=== PATIENT | male | born 1965 | race Two or more races ===

== ENCOUNTER 2018-12-06 12:44 | Emergency (ER) | payer OTHER ==
[2018-12-06 12:56] VITALS: BMI 21.9
--- NOTE | 2018-12-06 13:07 | PDOC ---
History of Present Illness - General Chief Complaint: Chest Pain Stated Complaint: CHEST PAIN Time Seen by Provider: 12/06/18 13:06 History Source: Patient Exam Limitations: No Limitations - History of Present Illness Initial Comments: 53 yo M w a pmh of right sided nasal polyps presents to the ER with 1 hour of left sided sharp pleuritic chest pain. the patient reports that he was drinking water while working at his job when all of a sudden the patient felt a sharp pain in the left side of his chest. He describes the pain as sharp and needle like in character and rates it as 9/10. He denies any radiation of the pain and denies any associated nausea, vomiting, or diaphoresis. The patient states that his pain is worsened when he takes a deep breath but not reproducible on palpation or with arm motion. Physical exertion does not improve or worsen the patient's discomfort. The patient has not taken any medications for his discomfort. The patient also states that he has had a headache for the past 3 days which has not changed in character. He describes the headache as bilateral and pressure like. The headache is not what brought the patient into the ER, it is the chest pain which brought the patient into the ER. He denies recent fevers, chills, infections, long travel, history of blood clots , personal or family history of heart attacks, strokes or other blood vessel disease. PCP: Quincy Keith PSH: Sinus surgery Allergies: NKA, NKDA Social Hx: Denies smoking, drinking, or other substance usage including Cocaine. Past History - Past Medical History Allergies/Adverse Reactions: Allergies Allergy/AdvReac Type Severity Reaction Status Date / Time No Known Allergies Allergy Verified 12/06/18 12:57 Home Medications: Ambulatory Orders NK [No Known Home Medication] 12/06/18 COPD: No Other medical history: nasal polyps - Suicide/Smoking/Psychosocial Hx Smoking History: Never smoked Have you smoked in the past 12 months: No Information on smoking cessation initiated: No Hx Alcohol Use: No Drug/Substance Use Hx: No Review of Systems - Review of Systems Able to Perform ROS?: Yes Comments:: CONSTITUTIONAL: Absent: fever, no chills, no fatigue EYES: Absent: visual changes ENT: Absent: ear pain, no sore throat CARDIOVASCULAR: Present: Chest pain Absent: no palpitations RESPIRATORY: Present: SOB Absent: cough GI: Absent: abdominal pain, no nausea, no vomiting, no constipation, no diarrhea GENITOURINARY: Absent: dysuria, no frequency, no hematuria MUSKULOSKELETAL: Absent: back pain, no arthralgia, no myalgia SKIN: Absent: rash NEURO: Present: headache *Physical Exam - Vital Signs Last Vital Signs Temp Pulse Resp BP Pulse Ox 98.1 F 65 18 170/89 98 12/06/18 12:52 12/06/18 12:52 12/06/18 12:52 12/06/18 12:52 12/06/18 12:52 - Physical Exam Comments: GENERAL: Well-appearing, well-nourished. No apparent distress. HEENT: Normocephalic, atraumatic. PERRL, EOM intact. CARDIOVASCULAR: Normal S1, S2. Regular rate and rhythm. PULMONARY: Mild evidence of respiratory distress. Slightly decreased air entry in the left apex. No wheezing, rales or rhonchi. ABDOMEN: Soft, non-distended, non-tender. EXTREMITIES: Normal ROM in all four extremities. No gross deformities. SKIN: Warm, dry. No rash NEUROLOGICAL: No focal neurological deficits. Heart Score/ECG Review - History History: Slightly suspicious - Electrocardiogram EKG: Normal - Age Age: 45-65 - Risk Factors Based on the list above the patient has:: No risk factors known - Troponin Troponin: </= normal limit - Score Heart Score - Total: 1 ED Treatment Course - LABORATORY CBC & Chemistry Diagram: 12/06/18 13:30 12/06/18 13:30 Medical Decision Making - Medical Decision Making 53 yo M w a pmh of right sided nasal polyps presents to the ER with 1 hour of left sided sharp pleuritic chest pain. the patient reports that he was drinking water while working at his job when all of a sudden the patient felt a sharp pain in the left side of his chest. He describes the pain as sharp and needle like in character and rates it as 9/10. He denies any radiation of the pain and denies any associated nausea, vomiting, or diaphoresis. The patient states that his pain is worsened when he takes a deep breath but not reproducible on palpation or with arm motion. Physical exertion does not improve or worsen the patient's discomfort. The patient has not taken any medications for his discomfort. The patient also states that he has had a headache for the past 3 days which has not changed in character. He describes the headache as bilateral and pressure like. The headache is not what brought the patient into the ER, it is the chest pain which brought the patient into the ER. VS: Systolicly hypertensive. Right Arm BP: 152/84 Left Arm BP: 141/90 DDx IBNLT: ACS/NY, PE, Dissection, pnneumothorax, PNA, MSK chest pain, electrolyte/metabolic disturbance. Plan: EKG, CXR, POCUS, labs, D-Dimer, Oxygen, analgesia, re-assess. EKG Normal Sinus with sinus arrhymia Labs unremarkable - Negative D-Dimer - Negative Trop 1 - POCUS unremarkable. No signs on pneumothorax. Normal Echo. CXR: unremarkable Patient experienced moderate relief after receiving toradol. - Repeat Bedside POCUS shows no sign of Pneumothorax Will obtain 2nd trop and if negative will discharge home with PCP follow up. 2nd trop negative. DCing patient. *DC/Admit/Observation/Transfer Diagnosis at time of Disposition: Chest pain - Discharge Dispostion Disposition: HOME Condition at time of disposition: Stable Decision to Admit order: No - Referrals Referrals: Quincy Keith [Primary Care Provider] - - Patient Instructions Printed Discharge Instructions: DI for Atypical Chest Pain, DI for Chest Pain Additional Instructions: You came into the ER with chest pain. We looked at your blood and did an EKG which did not suggest you had a heart attack. We did a bedside ultrasound and a chest x-ray which did not suggest that you have air in between your lungs and chest wall. We believe your pain is musculoskeletal in nature. Take motrin/ ibuprofen/advil or tylenol as recommended on the package for control of your pain. Please make sure to schedule a follow up appointment with your primary care doctor in the next 3 to 5 days to make sure you are getting better and being taken care of. Come back to the Er if your pain worsens, you become short of breath, start vomiting, or have any other new or worsening concerns. Thank you for coming to the [facility] ER. We hope you feel better soon! Print Language: DANISH - Post Discharge Activity
[2018-12-06 13:45] LABS: BASO % 0.4 % (0-2.0); EOS % 2.5 % (0-4.5); HEMATOCRIT 46.5 % (35.4-49); HEMOGLOBIN 15.8 GM/dL (11.7-16.9); MCH 30.1 pg (25.7-33.7); MCHC 33.9 g/dl (32.0-35.9); MEAN CELL VOLUME 88.6 fl (80-96); MEAN PLT VOLUME 7.4 fl (7.5-11.1); MONO % 6.7 % (3.8-10.2); NEUT % 70.4 % (42.8-82.8); PLATELET COUNT 200 K/MM3 (134-434); RBC 5.25 M/mm3 (4.00-5.60); RDW 13.4 % (11.9-15.9); WHITE BLOOD COUNT 5.6 K/mm3 (4.0-10.0)
[2018-12-06 14:08] LABS: PROTHROMBIN TIME (PATIENT) 11.8 SEC (9.7-13.0)
[2018-12-06 14:34] LABS: ALBUMIN 4.3 g/dl (3.4-5.0); ALK PHOS 74 U/L (45-117); ANION GAP 4 MMOL/L (8-16); BILIRUBIN,TOTAL 0.3 mg/dL (0.2-1); BLOOD UREA NITROGEN 12 mg/dL (7-18); CALCIUM 8.9 mg/dL (8.5-10.1); CHLORIDE 101 mmol/L (98-107); CO2 34 mmol/L (21-32); CREATININE 0.7 mg/dL (0.55-1.3); GLUCOSE,RANDOM 104 mg/dL (74-106); MAGNESIUM 2.1 mg/dL (1.8-2.4); POTASSIUM 4.3 mmol/L (3.5-5.1); SGOT/AST 22 U/L (15-37); SGPT/ALT 31 U/L (13-61); SODIUM 139 mmol/L (136-145); TOT PROT 7.3 g/dl (6.4-8.2)
[2018-12-06] MEDS ORDERED: KETOROLAC TROMETHAMINE 30 MG/1 ML VIAL IVPUSH ONE (14:59)
--- NOTE | 2018-12-06 15:01 | PDOC ---
Documentation entered by Mariela Lam SCRIBE, acting as scribe for Eber Duarte MD. Eber Duarte MD: This documentation has been prepared by the Genaro sanders Sammi, SCRIBE, under my direction and personally reviewed by me in its entirety. I confirm that the documentation accurately reflects all work, treatment, procedures, and medical decision making performed by me. Attending Attestation - HPI HPI: 12/06/18 13:30 Patient is a 53 year old male, with left sided, nonradiating, sharp pleuritic chest pain, 05/01. Pt denies nausea, vomiting, diaphoresis. - Physicial Exam PE: 12/06/18 14:59 Patient is awake and alert, in no respiratory distress Normocephalic and atraumatic PERRLA, EOMI No JVD Lungs are clear to auscultation RRR No thoracic rash Abdomen is soft nontender No lower extremity edema - Medical Decision Making 12/06/18 15:00 53-year-old male presents with atraumatic atypical left-sided chest discomfort. EKG shows no evidence acute ischemia or arrhythmia. D-dimer is negative given the patient is low probability for PE. Chest x-ray in the expiratory and inspiratory phase reveals no evidence of underlying pneumothorax/infiltrate or effusion. First set of cardiac enzymes within normal limit. We'll administer Toradol IV; will repeat x-ray as well as high sensitivity troponin 2 hours. If no acute pathology is identified, we'll discharge.
--- NOTE | 2018-12-06 15:31 | EKG ---
Test Reason : Blood Pressure : / mmHG Vent. Rate : 063 BPM Atrial Rate : 063 BPM P-R Int : 180 ms QRS Dur : 074 ms QT Int : 416 ms P-R-T Axes : 050 020 054 degrees QTc Int : 425 ms SINUS RHYTHM WITH MARKED SINUS ARRHYTHMIA OTHERWISE NORMAL ECG NO PREVIOUS ECGS AVAILABLE Confirmed by IAN CHASE, GRIFFIN ([id number]) on 12/06/2018 3:31:31 PM Referred By: Confirmed By:GRIFFIN SOSA MD
[2018-12-06] MEDS ORDERED: KETOROLAC TROMETHAMINE 30 MG/1 ML VIAL ONE (16:22)
[2018-12-06 18:28] VITALS: BP 149/96; PULSE 53; TEMP 97.8
== END 2018-12-06 18:35 | disposition home or self-care (01) ==
LOC: JER 12:44 → SUPCPDRO 12:44 → JER 18:35
PROC: 3E0333Z Introduction of Anti-inflammatory into Peripheral Vein, Percutaneous Approach (ICD-10-PCS; principal; 2018-12-06)
DX: R07.9 Chest pain, unspecified (principal); J33.9 Nasal polyp, unspecified
CPT/HCPCS: 36415; 71046-TC-FY; 80053; 83735; 84484; 85025; 85379; 85610; 93005; 93010; 99284-25